=== PATIENT | female | born 1975 | race Two or more races ===

== ENCOUNTER 2020-12-02 12:45 | Inpatient (IN) | payer OTHER ==
[~2020-12-02] VITALS: Ht 154.9 cm; Wt 50.3 kg
[2020-12-02] MEDS ORDERED: VITAL-D RX TAB1 EACH PO (16:48)
== END 2020-12-05 12:21 | disposition home or self-care (01) | DRG 743 ==
LOC: OB/GYN 12-03 08:29 → O/R 12-03 08:29 → SURH 12-03 12:45 → OB/GYN 12-03 22:24
PROVIDERS: ADMIT Specialist; ATTEND Specialist
PROC: 0UB60ZZ Excision of Left Fallopian Tube, Open Approach (ICD-10-PCS; 2020-12-03)
PROC: 0UT10ZZ Resection of Left Ovary, Open Approach (ICD-10-PCS; principal; 2020-12-03 13:15)
DX: D27.1 Benign neoplasm of left ovary (principal)